=== PATIENT | male | born 1990 | race Caucasian/White ===

== ENCOUNTER 2019-09-02 16:28 | Emergency (ER) | payer SELFPAY ==
[2019-09-02] MEDS ORDERED: Ondansetron 4 MG/2 ML SDV IVPUSH ONE (17:01)
[2019-09-02] MEDS ORDERED: Ondansetron 4 MG/2 ML SDV ONE (17:01)
[2019-09-02] MEDS ORDERED: Ondansetron 4 MG Tab.DIS ONE (17:03)
[2019-09-02 17:06] LABS: CHLORIDE,CL 105 mmol/L (98-107); SODIUM,NA 144 mmol/L (136-145)
[2019-09-02] MEDS ORDERED: Sodium Chloride 0.9% 1,000 ML IV ONE ×2 (17:16→20:07)
[2019-09-02] MEDS ORDERED: Potassium Chloride 10 MEQ Tab.ER PO ONE (18:00)
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
[2019-09-02] MEDS ORDERED: Diphtheria,Pertussis(Acell),Tetanus Vaccine 0.5 ML SDV IM ONE (19:19)
[2019-09-02] MEDS ORDERED: Diphtheria/Tetanus Toxoids,Adult (Td) 0.5 ML Syringe IM ONE (20:03)
[2019-09-02 20:17] LABS: BARBITURATE SCREEN,URINE NEGATIVE (NEGATIVE); BENZODIAZEPINES SCREEN,URINE NEGATIVE (NEGATIVE); EDDP,URINE SCREEN NEGATIVE (NEGATIVE); TCA SCREEN,URINE NEGATIVE (NEGATIVE); THC SCREEN,URINE 50 NG/ML NEGATIVE (NEGATIVE)
== END 2019-09-02 20:15 ==
LOC: LL.ED 16:28 → UNDOADMOB 18:35 → LL.MS 18:35
DX: S02.2XXA Fracture of nasal bones, initial encounter for closed fracture (principal); S02.401A Maxillary fracture, unspecified side, initial encounter for closed fracture; S02.19XA Other fracture of base of skull, initial encounter for closed fracture; S01.82XA Laceration with foreign body of other part of head, initial encounter; S00.83XA Contusion of other part of head, initial encounter; S40.211A Abrasion of right shoulder, initial encounter; S00.81XA Abrasion of other part of head, initial encounter; S00.412A Abrasion of left ear, initial encounter; S80.211A Abrasion, right knee, initial encounter; S50.311A Abrasion of right elbow, initial encounter; Z23 Encounter for immunization; V29.9XXA Motorcycle rider (driver) (passenger) injured in unspecified traffic accident, initial encounter
CPT/HCPCS: 12001; 12052; 36415; 70450; 70487; 72125; 80053; 80305-QW; 80307; 81001; 85025; 90471; 90715; 96360; 96361; 99285-25; A9270-GY; J2405; J7030

== ENCOUNTER 2019-12-31 04:32 | Emergency (ER) | payer SELFPAY ==
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
[2019-12-31] MEDS ORDERED: Acetaminophen 500 MG Tab PO ONE (05:20)
== END 2019-12-31 05:30 ==
LOC: LL.ED 04:32
DX: S00.81XA Abrasion of other part of head, initial encounter (principal); S50.01XA Contusion of right elbow, initial encounter; Y04.0XXA Assault by unarmed brawl or fight, initial encounter
CPT/HCPCS: 73080-RT; 99284; A9270-GY

== ENCOUNTER 2023-01-01 19:01 | Emergency (ER) | payer OTHER ==
[2023-01-01] MEDS ORDERED: Morphine 4 MG/ML Syringe IVPUSH ONE ×3 (19:19→22:18)
[2023-01-01] MEDS ORDERED: Ondansetron 4 MG/2 ML SDV IVPUSH ONE (19:19)
[2023-01-01] MEDS ORDERED: Sodium Chloride 0.9% 10 ML Syringe FLUSH PRN (19:24)
[2023-01-01] MEDS ORDERED: Sodium Chloride 0.9% 1,000 ML IV ONE ×2 (19:25→20:30)
[2023-01-01 19:30] LABS: BASOPHILS ABSOLUTE AUTO 0.03 K/uL (0.00-0.20); BASOPHILS PERCENT AUTO 0.2 % (0.0-2.0); EOSINOPHILS ABSOLUTE AUTO 0.02 K/uL (0.00-0.50); EOSINOPHILS PERCENT AUTO 0.2 % (0.0-5.0); HEMATOCRIT 45.8 % (39.0-49.0); HEMOGLOBIN 15.7 g/dL (13.1-16.8); LYMPHOCYTES ABSOLUTE AUTO 2.03 K/uL (0.50-3.50); LYMPHOCYTES PERCENT AUTO 15.5 % (10.0-50.0); MEAN CORPUSCULAR HEMOGLOBIN 30.5 pg (28.2-33.3); MEAN CORPUSCULAR HGB CONC 34.3 g/dL (31.7-36.0); MEAN CORPUSCULAR VOLUME 89.1 fL (84.0-98.0); MONOCYTES ABSOLUTE AUTO 1.14 K/uL (0.00-1.00); MONOCYTES PERCENT AUTO 8.7 % (2.0-14.0); NEUTROPHILS ABSOLUTE AUTO 9.84 K/uL (1.40-7.00); NEUTROPHILS PERCENT AUTO 75.4 % (45.0-80.0); PLATELET COUNT,PLT 245 K/uL (150-350); RED BLOOD CELL COUNT 5.14 M/uL (4.33-5.41); RED CELL DISTRIBUTION WIDTH 13.4 % (11.2-14.1); WHITE BLOOD CELL COUNT,WBC 13.1 K/uL (4.0-10.2)
[2023-01-01 19:40] LABS: ALANINE AMINOTRANSFERASE,ALT 57 U/L (12-78); ALBUMIN 4.5 g/dL (3.4-5.0); ALKALINE PHOSPHATASE 72 IU/L (46-116); ASPARTATE AMNIOTRANSFERASE,AST 22 U/L (15-37); BILIRUBIN TOTAL 3.8 mg/dL (0.2-1.0); BLOOD UREA NITROGEN,BUN 15 mg/dL (7-18); CALCIUM 9.5 mg/dL (8.5-10.1); CHLORIDE,CL 97 mmol/L (98-107); CREATININE 1.59 mg/dL (0.51-1.17); GLUCOSE RANDOM 155 mg/dL (70-99); POTASSIUM,K 3.6 mmol/L (3.5-5.1); PROTEIN TOTAL,TP 8.1 g/dL (6.4-8.2); SODIUM,NA 135 mmol/L (136-145)
[2023-01-01 19:44] LABS: ANION GAP 17.6 meq/L (7-15); ESTIMATED GFR 58 mL/min (>=60)
[2023-01-01] MEDS ORDERED: Iopamidol 612 MG/ML 100 ML Bottle IVPUSH ONE (20:19)
[2023-01-01] MEDS ORDERED: Piperacillin/Tazobactam 3.375 GM in Sodium Chloride 0.9% 100 ML IV ONE (20:30)
[2023-01-01 21:05] LABS: APPEARANCE,URINE CLEAR; BILIRUBIN,URINE NEGATIVE (NEGATIVE); COLOR,URINE YELLOW; GLUCOSE,URINE NEGATIVE (NEGATIVE); KETONES,URINE TRACE mg/dL (NEGATIVE); LEUKOCYTE ESTERASE,URINE NEGATIVE (NEGATIVE); NITRITE,URINE NEGATIVE (NEGATIVE); OCCULT BLOOD,URINE TRACE-INTACT (NEGATIVE); PROTEIN,URINE 30 mg/dL (NEGATIVE); UROBILINOGEN,URINE 0.2 E.U./dL (0.2-1.0)
[2023-01-01 21:16] LABS: BACTERIA,URINE NOT SEEN /HPF (NONE TO FEW); EPITHELIAL CELLS,URINE NOT SEEN /LPF; MUCUS,URINE NOT SEEN /LPF (NEGATIVE); RBC,URINE 0-5 /HPF; WBC,URINE 0-5 /HPF
== END 2023-01-01 23:07 ==
LOC: LL.ED 19:01
DX: K35.200 Acute appendicitis with generalized peritonitis, without perforation or abscess (principal)
CPT/HCPCS: 36415; 74177; 80053; 80307; 81001; 83605; 85025; 96361; 96365; 96375; 96376; 99284; 99285-25; J2270; J2405; J2543; J3490; J7030

== ENCOUNTER 2024-08-13 22:20 | Emergency (ER) | payer OTHER ==
[2024-08-13] MEDS ORDERED: Ondansetron 4 MG/2 ML SDV ONE (22:23)
[2024-08-13] MEDS ORDERED: fentaNYL 50 MCG/ML SDV ONE ×2 (22:23→22:29)
[2024-08-13] MEDS ORDERED: Lactated Ringers 1,000 ML IV SCH (22:25)
[2024-08-13] MEDS ORDERED: Ondansetron 4 MG/2 ML SDV IVPUSH ONE (22:30)
[2024-08-13] MEDS ORDERED: fentaNYL 50 MCG/ML SDV IVPUSH ONE ×2 (22:32→22:40)
[2024-08-13 22:36] LABS: BASOPHILS ABSOLUTE AUTO 0.09 K/uL (0.00-0.20); BASOPHILS PERCENT AUTO 1.2 % (0.0-2.0); EOSINOPHILS ABSOLUTE AUTO 0.22 K/uL (0.00-0.50); EOSINOPHILS PERCENT AUTO 2.8 % (0.0-5.0); HEMATOCRIT 43.3 % (39.0-49.0); IMMATURE GRAN ABSOLUTE AUTO 0.01 10^3/uL (0.00-0.04); IMMATURE GRAN PERCENT AUTO 0.1 % (0.0-0.4); LYMPHOCYTES ABSOLUTE AUTO 3.77 K/uL (0.50-3.50); LYMPHOCYTES PERCENT AUTO 48.4 % (10.0-50.0); MEAN CORPUSCULAR HEMOGLOBIN 30.6 pg (28.2-33.3); MEAN CORPUSCULAR HGB CONC 34.6 g/dL (31.7-36.0); MEAN CORPUSCULAR VOLUME 88.4 fL (84.0-98.0); MONOCYTES ABSOLUTE AUTO 0.64 K/uL (0.00-1.00); MONOCYTES PERCENT AUTO 8.2 % (2.0-14.0); NEUTROPHILS ABSOLUTE AUTO 3.06 K/uL (1.40-7.00); NEUTROPHILS PERCENT AUTO 39.3 % (45.0-80.0); PLATELET COUNT,PLT 270 K/uL (150-350); RED CELL DISTRIBUTION WIDTH 12.7 % (11.2-14.1); WHITE BLOOD CELL COUNT,WBC 7.8 K/uL (4.0-10.2)
[2024-08-13] MEDS ORDERED: Lidocaine 1% 5 ML VIAL ONE ×2 (22:50→22:55)
[2024-08-13 22:53] LABS: INR 1.2 (0.9-1.1)
[2024-08-13 22:56] LABS: ALANINE AMINOTRANSFERASE,ALT 79 U/L (12-78); ALBUMIN 4.2 g/dL (3.4-5.0); ALKALINE PHOSPHATASE 68 IU/L (46-116); ANION GAP 17.8 meq/L (7-15); ASPARTATE AMNIOTRANSFERASE,AST 34 U/L (15-37); BILIRUBIN TOTAL 0.6 mg/dL (0.2-1.0); BLOOD UREA NITROGEN,BUN 13 mg/dL (7-18); CALCIUM 9.3 mg/dL (8.5-10.1); CARBON DIOXIDE,CO2 22.6 mmol/L (21.0-32.0); CHLORIDE,CL 101 mmol/L (98-107); CREATININE 1.37 mg/dL (0.51-1.17); GLUCOSE RANDOM 124 mg/dL (70-99); MAGNESIUM 1.7 mg/dL (1.8-2.4); POTASSIUM,K 3.4 mmol/L (3.5-5.1); PROTEIN TOTAL,TP 7.4 g/dL (6.4-8.2); SODIUM,NA 138 mmol/L (136-145)
[2024-08-13 22:57] LABS: ESTIMATED GFR 69 mL/min (>=60)
[2024-08-13] MEDS ORDERED: Diphtheria/Tetanus Toxoids,Adult (Td) 0.5 ML Syringe IM ONE (23:09)
[2024-08-13 23:13] LABS: PROTHROMBIN TIME 11.3 SEC (9.0-11.1)
[2024-08-13] MEDS ORDERED: Bacitracin/Neomycin/Polymyxin B Ophth Oint 3.5 GM Tube ONE (23:24)
[2024-08-13] MEDS ORDERED: Bacitracin Oint 1 GM U/D Packet ONE ×2 (23:24→23:41)
== END 2024-08-13 23:50 | disposition home or self-care (01) ==
LOC: LL.ED 22:20
DX: S61.211A Laceration without foreign body of left index finger without damage to nail, initial encounter (principal); S61.203A Unspecified open wound of left middle finger without damage to nail, initial encounter; S61.205A Unspecified open wound of left ring finger without damage to nail, initial encounter; S30.811A Abrasion of abdominal wall, initial encounter; Z23 Encounter for immunization; W39.XXXA Discharge of firework, initial encounter
CPT/HCPCS: 12002; 36415; 73130; 80053; 83735; 85025; 85610; 90471; 90714; 96374; 96375; 99283; 99285; A9270; J2003; J2405; J3010; J7120